=== PATIENT | female | born 1985 | race Caucasian/White ===

== ENCOUNTER 2016-12-10 09:06 | Day surgery (SDC) | payer BC ==
[~2016-12-10] VITALS: Ht 154.9 cm; Wt 50.8 kg
[~2016-12-10 09:06] MED LIST: DEPO-PROVER150 MG/ML IM; FROVA2.5 MG PO; INNOPRAN XL80 MG PO; LAMICTAL100 MG PO; TOPAMAX100 MG PO; TOPAMAX50 MG PO
[2016-12-10] MEDS ORDERED: ATIVAN1 MG PO (09:29)
[2016-12-10 09:30] VITALS: BP 115/64
[2016-12-10 15:32] VITALS: BP 118/71
[2016-12-10 16:30] VITALS: BP 130/68
== END 2016-12-10 16:41 | disposition home or self-care (01) ==
LOC: SDC 09:06
DX: N92.0 Excessive and frequent menstruation with regular cycle (principal); N94.6 Dysmenorrhea, unspecified; N88.2 Stricture and stenosis of cervix uteri; N99.71 Accidental puncture and laceration of a genitourinary system organ or structure during a genitourinary system procedure; F39 Unspecified mood [affective] disorder; F41.9 Anxiety disorder, unspecified
CPT/HCPCS: 88305; 93005; J0330; J0690; J1100; J1170; J1644; J1885; J2405; J3010

== ENCOUNTER 2017-03-23 05:33 | Inpatient (IN) | payer BC, OTHER ==
[~2017-03-23] VITALS: Ht 154.9 cm; Wt 53.1 kg
[~2017-03-23 05:33] MED LIST changes: +ATIVAN1 MG PO; +INDERAL XL80 MG PO; +INDERAL80 MG PO; +LAMICTAL150 M1 PO; +VITAMIN C1000 MG PO
[2017-03-23 06:00] VITALS: BP 110/65
[2017-03-23 12:21] VITALS: BP 105/64
[2017-03-23 15:22] VITALS: BP 103/65
[2017-03-23 19:16] VITALS: BP 111/70
[2017-03-23 23:29] VITALS: BP 99/62
[2017-03-24 04:14] VITALS: BP 97/52
[2017-03-24 06:58] LABS: BASOPHIL COUNT 0.1 K/uL (0-0.1); EOSINOPHIL (%) 0.8 % (0-5); EOSINOPHIL COUNT 0.1 K/uL (0-0.3); HEMATOCRIT 34.6 % (36.0-46.0); IMMATURE GRANULOCYTE (%) 0.4 % (0.0-0.7); INSTRUMENT ABS NEUTROPHIL CT 4.6 K/uL; LYMPHOCYTE COUNT 1.9 K/uL (1.0-2.8); MCH 31.7 PG (29.0-34.0); MCHC 34.7 G/DL (30.0-36.0); MCV 91.5 FL (83-99); MEAN PLAT.VOLUME 9.6 uM^3 (9.5-12.4); MONOCYTE (%) 13.2 % (3-12); NEUTROPHIL (%) 60.4 % (45-76); NEUTROPHIL COUNT 4.6 K/uL (1.8-6.4); RBC DIS.WIDTH-CV 11.9 % (11.8-14.6); RBC DIS.WIDTH-SD 39.8 % (39-53); RED BLOOD COUNT 3.78 M/uL (3.80-5.20); WHITE BLOOD COUNT 7.6 K/uL (4.1-10.2)
[2017-03-24 07:09] LABS: PLATELET COUNT 150 K/uL (156-360)
[2017-03-24 07:22] LABS: ANION GAP 10 MEQ/L (2-14); CHLORIDE 107 MEQ/L (99-109); GLUCOSE 101 mg/dL (70-99); POTASSIUM 3.9 MEQ/L (3.7-5.4); SAMPLE HEMOLYSIS CHECK 0; SAMPLE ICTERIC CHECK 0; SAMPLE LIPEMIA CHECK 0; SODIUM 135 MEQ/L (136-147); UREA NITROGEN (BUN) 21 mg/dL (9-23)
[2017-03-24 07:24] LABS: GFR ESTIMATE (CALCULATED) 18 mL/min/
[2017-03-24 07:55] VITALS: BP 125/81
[2017-03-24 08:36] LABS: ALKALINE PHOSPHATASE 36 IU/L (3-129)
[2017-03-24 08:37] LABS: TOTAL BILIRUBIN 0.3 MG/DL (0.0-1.0)
[2017-03-24 09:57] LABS: ALKALINE PHOSPHATASE 40 IU/L (3-129); ANION GAP 6 MEQ/L (2-14); CHLORIDE 105 MEQ/L (99-109); GFR ESTIMATE (CALCULATED) 17 mL/min/; GLUCOSE 101 mg/dL (70-99); POTASSIUM 3.9 MEQ/L (3.7-5.4); SAMPLE HEMOLYSIS CHECK 0; SAMPLE ICTERIC CHECK 0; SAMPLE LIPEMIA CHECK 0; SODIUM 133 MEQ/L (136-147); UREA NITROGEN (BUN) 22 mg/dL (9-23)
[2017-03-24 09:58] LABS: TOTAL BILIRUBIN 0.4 MG/DL (0.0-1.0)
[2017-03-24 11:25] VITALS: BP 123/79
[2017-03-24 11:46] LABS: ADD MIUA? YES; BILIRUBIN NEGATIVE; BLOOD SMALL; COLOR YELLOW ((YELLOW)); GLUCOSE (STRIP) NEGATIVE; KETONES NEGATIVE; LEUKOCYTES SMALL; NITRITE NEGATIVE; PROTEIN (STRIP) 100; SPECIFIC GRAVITY 1.014 (1.000-1.030); UROBILINOGEN 0.2 MG/DL (0.2-1.0)
[2017-03-24 11:54] LABS: BACTERIA RARE /HPF; CALCIUM OXALATE CRYSTALS 1+ /HPF; EPITHELIAL CELLS RARE /HPF; MUCUS TRACE /LPF; RED BLOOD CELLS 15-20 /HPF (0-5)
[2017-03-24 20:30] VITALS: BP 141/81
[2017-03-25] VITALS (7 sets, daily range): BP systolic 116–132; BP diastolic 47–75
[2017-03-25 06:49] LABS: EOSINOPHIL (%) 0 % (0-5); HEMATOCRIT 37.1 % (36.0-46.0); IMMATURE GRANULOCYTE (%) 0.4 % (0.0-0.7); INSTRUMENT ABS NEUTROPHIL CT 6.4 K/uL; LYMPHOCYTE COUNT 0.7 K/uL (1.0-2.8); MCV 91.4 FL (83-99); MEAN PLAT.VOLUME 10.1 uM^3 (9.5-12.4); MONOCYTE (%) 8.7 % (3-12); MONOCYTE COUNT 0.7 K/uL (0-0.8); NEUTROPHIL (%) 82.2 % (45-76); NEUTROPHIL COUNT 6.4 K/uL (1.8-6.4); PLATELET COUNT 159 K/uL (156-360); RBC DIS.WIDTH-CV 11.9 % (11.8-14.6); RBC DIS.WIDTH-SD 39.5 % (39-53); RED BLOOD COUNT 4.06 M/uL (3.80-5.20); WHITE BLOOD COUNT 7.8 K/uL (4.1-10.2)
[2017-03-25 07:33] LABS: ANION GAP 9 MEQ/L (2-14); CHLORIDE 114 MEQ/L (99-109); GLUCOSE 126 mg/dL (70-99); POTASSIUM 4.6 MEQ/L (3.7-5.4); SAMPLE HEMOLYSIS CHECK 0; SAMPLE ICTERIC CHECK 0; SAMPLE LIPEMIA CHECK 0; UREA NITROGEN (BUN) 30 mg/dL (9-23); URIC ACID 4.4 mg/dL (3.1-9.2)
[2017-03-25 07:37] LABS: GFR ESTIMATE (CALCULATED) 22 mL/min/; SODIUM 142 MEQ/L (136-147)
[2017-03-25 12:33] LABS: ADD MIUA? YES; BILIRUBIN NEGATIVE; BLOOD LARGE; COLOR YELLOW ((YELLOW)); GLUCOSE (STRIP) NEGATIVE; KETONES NEGATIVE; LEUKOCYTES SMALL; NITRITE NEGATIVE; PROTEIN (STRIP) 30; SPECIFIC GRAVITY 1.006 (1.000-1.030); UROBILINOGEN 0.2 MG/DL (0.2-1.0)
[2017-03-25 12:56] LABS: BACTERIA RARE /HPF; EPITHELIAL CELLS RARE /HPF; MUCUS TRACE /LPF; RED BLOOD CELLS TNTC /HPF (0-5)
[2017-03-25 14:32] LABS: UR CREATININE CONCENTRATION 39.8 MG/DL
[2017-03-26 03:29] VITALS: BP 116/73
[2017-03-26 06:41] LABS: BASOPHIL COUNT 0.1 K/uL (0-0.1); EOSINOPHIL (%) 2.2 % (0-5); EOSINOPHIL COUNT 0.2 K/uL (0-0.3); HEMATOCRIT 36.6 % (36.0-46.0); IMMATURE GRANULOCYTE (%) 0.3 % (0.0-0.7); INSTRUMENT ABS NEUTROPHIL CT 6.6 K/uL; LYMPHOCYTE COUNT 1.3 K/uL (1.0-2.8); MCH 30.3 PG (29.0-34.0); MCHC 32.8 G/DL (30.0-36.0); MCV 92.4 FL (83-99); MEAN PLAT.VOLUME 9.8 uM^3 (9.5-12.4); MONOCYTE (%) 8.9 % (3-12); MONOCYTE COUNT 0.8 K/uL (0-0.8); NEUTROPHIL (%) 73.4 % (45-76); NEUTROPHIL COUNT 6.6 K/uL (1.8-6.4); PLATELET COUNT 175 K/uL (156-360); RBC DIS.WIDTH-CV 12.3 % (11.8-14.6); RED BLOOD COUNT 3.96 M/uL (3.80-5.20)
[2017-03-26 07:12] VITALS: BP 136/85
[2017-03-26 07:14] LABS: ANION GAP 5 MEQ/L (2-14); CHLORIDE 118 MEQ/L (99-109); GFR ESTIMATE (CALCULATED) 40 mL/min/; GLUCOSE 100 mg/dL (70-99); MAGNESIUM 1.8 mg/dl (1.3-2.7); POTASSIUM 4.3 MEQ/L (3.7-5.4); SAMPLE HEMOLYSIS CHECK 0; SAMPLE ICTERIC CHECK 0; SAMPLE LIPEMIA CHECK 0; SODIUM 144 MEQ/L (136-147); UREA NITROGEN (BUN) 18 mg/dL (9-23)
[2017-03-26 12:00] VITALS: BP 145/88
[2017-03-26 15:35] VITALS: BP 152/88
[2017-03-26 19:00] VITALS: BP 129/80
[2017-03-27 00:05] VITALS: BP 121/81
[2017-03-27 07:22] LABS: BASOPHIL COUNT 0.1 K/uL (0-0.1); EOSINOPHIL (%) 4.9 % (0-5); EOSINOPHIL COUNT 0.3 K/uL (0-0.3); HEMATOCRIT 34.1 % (36.0-46.0); IMMATURE GRANULOCYTE (%) 0.2 % (0.0-0.7); INSTRUMENT ABS NEUTROPHIL CT 4.1 K/uL; LYMPHOCYTE COUNT 1.4 K/uL (1.0-2.8); MCH 31.6 PG (29.0-34.0); MCHC 34.3 G/DL (30.0-36.0); MCV 92.2 FL (83-99); MEAN PLAT.VOLUME 10.1 uM^3 (9.5-12.4); MONOCYTE (%) 9.8 % (3-12); MONOCYTE COUNT 0.6 K/uL (0-0.8); NEUTROPHIL (%) 62.2 % (45-76); NEUTROPHIL COUNT 4.1 K/uL (1.8-6.4); PLATELET COUNT 161 K/uL (156-360); RBC DIS.WIDTH-CV 12.6 % (11.8-14.6); RBC DIS.WIDTH-SD 42.5 % (39-53); WHITE BLOOD COUNT 6.5 K/uL (4.1-10.2)
[2017-03-27 07:35] VITALS: BP 118/76
[2017-03-27 08:02] LABS: ANION GAP 9 MEQ/L (2-14); CHLORIDE 109 MEQ/L (99-109); GFR ESTIMATE (CALCULATED) > 59 mL/min/; GLUCOSE 87 mg/dL (70-99); POTASSIUM 3.9 MEQ/L (3.7-5.4); SAMPLE HEMOLYSIS CHECK 0; SAMPLE ICTERIC CHECK 0; SAMPLE LIPEMIA CHECK 0; SODIUM 140 MEQ/L (136-147); UREA NITROGEN (BUN) 10 mg/dL (9-23)
== END 2017-03-27 10:58 | disposition home or self-care (01) | DRG 982 ==
LOC: SDC 05:33 → 2SOUTH 09:35 → 2EAST 09:35 → 2SOUTH 09:35 → ENRESERV 09:51 → 2EAST 12:11 → SDC 14:45 → 2EAST 03-24 11:38
PROVIDERS: Internal Medicine Nephrology; Obstetrics & Gynecology Gynecology
PROC: 0UT9FZZ Resection of Uterus, Via Natural or Artificial Opening With Percutaneous Endoscopic Assistance (ICD-10-PCS; principal; 2017-03-23)
PROC: 3E0M45Z Introduction of Adhesion Barrier into Peritoneal Cavity, Percutaneous Endoscopic Approach (ICD-10-PCS; principal; 2017-03-23)
PROC: 0UT7FZZ Resection of Bilateral Fallopian Tubes, Via Natural or Artificial Opening With Percutaneous Endoscopic Assistance (ICD-10-PCS; principal; 2017-03-23)
PROC: 0T788DZ Dilation of Bilateral Ureters with Intraluminal Device, Via Natural or Artificial Opening Endoscopic (ICD-10-PCS; 2017-03-24)
PROC: BT141ZZ Fluoroscopy of Kidneys, Ureters and Bladder using Low Osmolar Contrast (ICD-10-PCS; 2017-03-24)
DX: N17.9 Acute kidney failure, unspecified (principal); E87.2 Acidosis; R31.9 Hematuria, unspecified; N92.0 Excessive and frequent menstruation with regular cycle; N94.6 Dysmenorrhea, unspecified; F41.9 Anxiety disorder, unspecified; G43.009 Migraine without aura, not intractable, without status migrainosus
CPT/HCPCS: 74420; 76770; 80048; 80053; 81003; 82570; 83735; 84100; 84156; 84550; 85025; 87086; 88302; 88307; C1769; C2625; G0378; J0131; J0690; J1100; J1644; J1885; J2001; J2250; J2405; J2710; J3010; J3475; J7030; J7050; J7120; Q0175